=== PATIENT | male | born 1990 | race Caucasian/White ===

== ENCOUNTER 2017-01-05 19:49 | Emergency (ER) | payer MEDICAID ==
--- NOTE | ~2017-01-05 | CR282 ---
[facility] A Service of [facility] & [facility] RADIOLOGY TEXT RESULTS PATIENT: KILLIAN WASHINGTON LOCATION: CFTX : [birth year] UNIT #: [id number] AGE: [address]: Hilda Wahl APRN [employer] SEX: M ORDER DR: [id number] [facility] [address] [place], [place] [address] [id number] MR#: [id number] Acc #: [id number] NAME: KILLIAN WASHINGTON. : 1990 SEX: M STUDY DATE/TIME: 01/06/2017 0:33 UNIT: TX ROOM: STUDY DESCRIPTION: CR Wrist Min 3 View Rt Attending Physician: Hilda Wahl A.P.R.N. Ordering Physician: Hilda Wahl A.P.R.N. Primary Care Physician: No Primary Care Physician MEDICAL IMAGING REPORT This report is preliminary unless electronic signature is present EXAM Right wrist. INDICATION Right wrist pain after hitting heavy bag seven days ago. FINDINGS Right wrist evaluation in multiple projections shows normal mineralization of the bony structures about the right wrist and satisfactory articular relationship of the radius and ulna to the proximal carpal row and of the distal carpal segments to the metacarpal bases. There is no indication of fracture or dislocation, and no soft tissue radiopaque foreign body is present. No congenital defects are apparent. IMPRESSION Normal right wrist. Dictated by... Riccardo Goel M.D. THIS IS AN ELECTRONICALLY VERIFIED REPORT Riccardo Goel M.D. at 01/06/2017 1:21 PM FEL/gz TD: 01/06/2017 10:18 JOB #: [id number] MEDICAL IMAGING REPORT Page 1 of 1 COPY
[~2017-01-05 19:49] MED LIST: AMOXICILLIN500 M1 PO; BACTROBAN22 GM TP; KEFLEX PO; ROBAXIN500 MG PO; VOLTAREN75 MG PO
== END 2017-01-06 01:39 | disposition home or self-care (01) ==
LOC: CED 19:49 → CFTX 19:49
DX: S63.501A Unspecified sprain of right wrist, initial encounter (principal); W21.89XA Striking against or struck by other sports equipment, initial encounter; F17.200 Nicotine dependence, unspecified, uncomplicated
CPT/HCPCS: 29125; 73110; 99283

== ENCOUNTER 2017-01-14 15:26 | Emergency (ER) | payer MEDICAID ==
--- NOTE | ~2017-01-14 | CR116 ---
[facility] A Service of [facility] & [facility] RADIOLOGY TEXT RESULTS PATIENT: KILLIAN WASHINGTON LOCATION: CFTX : 90 UNIT #: [id number] AGE: [address]: Nerissa Horta SEX: M ORDER DR: [id number] [facility] [address] [place] [address] [place], [place] [address] [id number] MR#: [id number] Acc #: [id number] NAME: KILLIAN WASHINGTON. : 1990 SEX: M STUDY DATE/TIME: 01/14/2017 15:51 UNIT: [facility] ROOM: STUDY DESCRIPTION: CR Finger 2 View Thumb Lt Attending Physician: Nerissa Horta Pa-C Ordering Physician: Ed Doc Yonas Carpenter Primary Care Physician: No Primary Care Physician MEDICAL IMAGING REPORT This report is preliminary unless electronic signature is present EXAM Left thumb, 2 views. HISTORY Pain, lacerated distal left thumb, cut with knife FINDINGS Three views of the left thumb demonstrate no fracture or deformity. No radiopaque foreign body. Joint space is maintained. IMPRESSION Negative left thumb. Dictated by... Spencer Tierney M.D. THIS IS AN ELECTRONICALLY VERIFIED REPORT Spencer Tierney M.D. at 01/15/2017 2:45 PM Elisabet TD: 01/14/2017 16:51 JOB #: [id number] MEDICAL IMAGING REPORT Page 1 of 1 COPY
== END 2017-01-14 17:15 | disposition home or self-care (01) ==
LOC: CED 15:26 → CFTX 15:26
DX: S61.012A Laceration without foreign body of left thumb without damage to nail, initial encounter (principal); W26.0XXA Contact with knife, initial encounter; Y92.009 Unspecified place in unspecified non-institutional (private) residence as the place of occurrence of the external cause; Z23 Encounter for immunization; F17.200 Nicotine dependence, unspecified, uncomplicated
CPT/HCPCS: 12001; 73140; 90471; 90715; 99283